=== PATIENT | male | born 1985 | race Caucasian/White ===

== ENCOUNTER 2016-08-29 15:02 | Emergency (ER) | payer BC, OTHER ==
[2016-08-29] MEDS ORDERED: TETANUS/DIPHTHERIA/PERTUSSIS 0.5 ML SYRINGE IM ONE ×2 (17:43→17:45)
== END 2016-08-29 18:06 | disposition home or self-care (01) ==
DX: S81.812A Laceration without foreign body, left lower leg, initial encounter (principal); W29.3XXA Contact with powered garden and outdoor hand tools and machinery, initial encounter; Y93.89 Activity, other specified; Y92.009 Unspecified place in unspecified non-institutional (private) residence as the place of occurrence of the external cause; Z23 Encounter for immunization